=== PATIENT | female | born 1970 | race Caucasian/White ===

== ENCOUNTER 2022-07-23 11:33 | Inpatient (IN) | payer MEDICAID ==
[~2022-07-23] VITALS: Ht 165.1 cm; Wt 68.2 kg
[2022-07-23] VITALS (19 sets, daily range): BP systolic 90–148; BP diastolic 50–74
[2022-07-23] MEDS ORDERED: HYDROcodone/acetaminophen 10/325mg tab PO STA (12:18)
[2022-07-23] MEDS ORDERED: LIDOcaine 1% W/epiNEPHrine 1:100,000 20ml vial SQ ONE (14:10)
[2022-07-23] MEDS ORDERED: TETanus/Pertussis (Acell)/Diphther VAC/PF (Tdap-Adult) 0.5ml syringe IMVAC ONE (14:10)
[2022-07-23] MEDS ORDERED: ceFAZolin/D5W- 1GM premix 50 ML IV STA (15:47)
[2022-07-23] MEDS ORDERED: piperacillin/tazo 3.375gm/50ml 50 ML IV ONE (15:55)
[2022-07-23 16:15] LABS: BASOPHILS % (AUTO) 0.3 % (0-1); EOSINOPHILS % (AUTO) 0.2 % (0-6); HEMATOCRIT 40.2 % (35.0-45.0); HEMOGLOBIN 13.4 g/dl (12.0-16.0); LYMPHOCYTES # (AUTO) 0.8 X10'3 (1.1-4.8); LYMPHOCYTES % (AUTO) 7.3 % (21-51); MEAN CORPUSCULAR HEMOGLOBIN 29.3 PG (27.0-31.0); MEAN CORPUSCULAR HGB CONC 33.4 g/dL (33.0-36.5); MEAN CORPUSCULAR VOLUME 87.7 FL (78-98); MEAN PLATELET VOLUME 9.2 FL (7.4-10.4); MONOCYTES # (AUTO) 0.7 X10'3 (0-0.9); NEUTROPHILS % (AUTO) 86.2 % (42-75); PLATELET COUNT 295 X10'3 (140-440); RED BLOOD COUNT 4.58 X10'6 (4.20-5.60); RED CELL DISTRIBUTION WIDTH 13.6 % (11.5-14.5); WHITE BLOOD COUNT 11.5 X10'3 (4.5-11.0)
[2022-07-23] MEDS ORDERED: magnesium hydroxide 30ml (MOM) UD suspension PO PRN (16:15)
[2022-07-23] MEDS ORDERED: ondansetron/PF 4mg/2ml inj IV PRN ×2 (16:15→16:45)
[2022-07-23] MEDS ORDERED: acetaminophen 325mg tablet PO PRN (16:15)
[2022-07-23] MEDS ORDERED: HYDROcodone/acetaminophen 5mg/325mg tablet PO PRN (16:15)
[2022-07-23] MEDS ORDERED: mag hydrox/Alum hydrox/simeth 30ml oral suspension PO PRN (16:15)
[2022-07-23] MEDS ORDERED: morphine 2 MG/ML inj. syringe IV PRN ×3 (16:15→16:45)
[2022-07-23] MEDS ORDERED: IBUP-1985 PO (16:17)
[2022-07-23] MEDS ORDERED: vancomycin 1,000mg inj ONE ×2 (16:22→17:54)
[2022-07-23 16:37] LABS: ALANINE AMINOTRANSFERASE 21 U/L (12-78); ALBUMIN 3.8 G/DL (3.4-5.0); ALBUMIN/GLOBULIN RATIO 1.2 (1.1-1.5); ALKALINE PHOSPHATASE 69 IU/L (46-116); ANION GAP 12 (8-16); ASPARTATE AMINO TRANSFERASE 18 U/L (10-37); BILIRUBIN,TOTAL 0.2 MG/DL (0.1-1.0); BLOOD UREA NITROGEN 11 MG/DL (7-18); BUN/CREATININE RATIO 14.3 (10.0-20.0); CALCIUM 9.1 MG/DL (8.5-10.1); CHLORIDE 104 MMOL/L (99-107); CREATININE 0.77 MG/DL (0.40-0.90); GLUCOSE 108 MG/DL (70-104); POTASSIUM 3.9 MMOL/L (3.5-5.1); SODIUM 140 MMOL/L (135-145); TOTAL CARBON DIOXIDE 24.4 MMOL/L (24-32); eGFR 79 ML/MIN
[2022-07-23] MEDS ORDERED: ringers solution, lacted 1,000 ML IV SCH (16:45)
[2022-07-23] MEDS ORDERED: proCHLORperazine 10 MG/2 ml inj IV PRN (16:45)
[2022-07-23] MEDS ORDERED: meperidine/PF 25mg/ml syringe IV PRN ×3 (16:45)
[2022-07-23] MEDS ORDERED: morphine 4 MG/ML inj SYRINge IV PRN (16:45)
[2022-07-23] MEDS ORDERED: vancomycin/NS 1 GM ADD-VANTAGE 250 ML IV SCH ×2 (17:00→23:11)
[2022-07-23] MEDS ORDERED: midazolam 1 mg/ML 2ml injection ONE (17:36)
[2022-07-23] MEDS ORDERED: fentaNYL/PF 50MCG/1 ML 2ML syringe ONE (17:36)
[2022-07-23] MEDS ORDERED: propofol inj 20 ML IV ONE (17:49)
[2022-07-23] MEDS ORDERED: ondansetron/PF 4mg/2ml inj ONE (17:49)
[2022-07-23] MEDS ORDERED: tobramycin 40mg/ml inj ONE (17:54)
--- NOTE | 2022-07-23 18:32 | NUR ---
Received from OR via HOSPITAL BED TO REVOVERY ROOM 7 , accompanied by DR HOWELLnesthesiologist and report given by Anesthesiolgist. PT PRESENTS WITH PIV 20G RIGHT HAND, LR RUNNING AT 100MLS/HR, SP02 100% 6L MASK, DRESSING ON RIGHT LOWER LEG CDI, VSS. Addendum: 07/23/22 at 1858 by Yessenia Santos RN, RN Amended: Links added.
--- NOTE | 2022-07-23 19:45 | NUR ---
Patient in room ED 346. I have received report from TYLER Casas and had the opportunity to ask questions and assume patient care.
--- NOTE | 2022-07-23 20:00 | NUR ---
pt arrived to floor in hospital bed. oriented to room. call light in reach.
--- NOTE | 2022-07-23 20:02 | NUR ---
Report called to receiving nurse KIMANI SCOTT. Transferred via HOSPITAL BED TO ROOM 346A. BED IN LOW LOCKED POSITION WITH CALL LIGHT IN REACH, CHART TAKEN TO NURSES STATION. Belongings WERE TAKEN HOME BY PT'S FRIEND MARIAM. Special Issues communicated to receiving nurse. Addendum: 07/23/22 at 2012 by Yessenia Santos RN, RN Amended: Links added.
[2022-07-23] MEDS: dextrose 5%-1/2 normal saline 1,000 ML IV SCH (20:57)
[2022-07-23] MEDS: docusate sod 100mg capsule PO SCH (21:33)
[2022-07-23] MEDS: HYDROcodone/acetaminophen 10/325mg tab PO PRN (21:34)
[2022-07-24] MEDS: HYDROcodone/acetaminophen 10/325mg tab PO PRN (03:00)
[2022-07-24] MEDS: dextrose 5%-1/2 normal saline 1,000 ML IV SCH (04:56)
[2022-07-24 06:00] VITALS: BP 117/59
--- NOTE | 2022-07-24 06:31 | NUR ---
Problems reprioritized. Patient report given, questions answered & plan of care reviewed with SIGIFREDO Disla.
--- NOTE | 2022-07-24 06:48 | NUR ---
Patient in room ED 346. I have received report from Ann Marie SCOTT and had the opportunity to ask questions and assume patient care. Pt is awake, states pain is acceptable at 4/10, lying supine, no distress noted.
[2022-07-24 07:15] LABS: BASOPHILS % (AUTO) 0.3 % (0-1); EOSINOPHILS % (AUTO) 0 % (0-6); HEMATOCRIT 35.7 % (35.0-45.0); HEMOGLOBIN 12.1 g/dl (12.0-16.0); LYMPHOCYTES # (AUTO) 0.9 X10'3 (1.1-4.8); MEAN CORPUSCULAR HEMOGLOBIN 29.7 PG (27.0-31.0); MEAN CORPUSCULAR VOLUME 87.4 FL (78-98); MEAN PLATELET VOLUME 9.8 FL (7.4-10.4); MONOCYTES # (AUTO) 0.8 X10'3 (0-0.9); MONOCYTES % (AUTO) 7.9 % (2-12); NEUTROPHILS # (AUTO) 8.5 X10'3 (1.8-7.7); NEUTROPHILS % (AUTO) 82.8 % (42-75); PLATELET COUNT 264 X10'3 (140-440); RED BLOOD COUNT 4.08 X10'6 (4.20-5.60); RED CELL DISTRIBUTION WIDTH 13.5 % (11.5-14.5); WHITE BLOOD COUNT 10.2 X10'3 (4.5-11.0)
[2022-07-24 08:06] LABS: ALBUMIN 3.1 G/DL (3.4-5.0); ANION GAP 10 (8-16); BLOOD UREA NITROGEN 9 MG/DL (7-18); BUN/CREATININE RATIO 14.5 (10.0-20.0); CALCIUM 8.4 MG/DL (8.5-10.1); CHLORIDE 106 MMOL/L (99-107); CREATININE 0.62 MG/DL (0.40-0.90); GLUCOSE 134 MG/DL (70-104); POTASSIUM 3.8 MMOL/L (3.5-5.1); SODIUM 141 MMOL/L (135-145); TOTAL CARBON DIOXIDE 25.4 MMOL/L (24-32); eGFR > 90 ML/MIN
[2022-07-24] MEDS: docusate sod 100mg capsule PO SCH (09:45)
--- NOTE | 2022-07-24 10:33 | NUR ---
Pt paged. [id number]- Efraín- Dr. Sanches would like Pt to be evaluated by PT and for assistive/ambulation devices. Pt has wound to R calf. Pt received [place] recently. Thanks. Naif Manzano LVN
[2022-07-24 11:00] VITALS: BP 108/52
--- NOTE | 2022-07-24 12:21 | NUR ---
Called Dr Arteaga per DR Sanches request. Received orders for WBAT. Per Dr Arteaga if patient does well with PT he is ok for Dr Sanches to discharge. Patient will need to follow up with Dr Arteaga in [address] Arteaga would like patient to go home on Augmentin for 7 days PO. Keep dressing CDI, If patient needs to take shower keep dressing Dry, Ok to send patient home with 4x4 dressing and Uday wrap if she really needs to take shower ok to remove dressing shower and then pat dry incision and then replace 4x4 and Uday wrap.
--- NOTE | 2022-07-24 13:43 | NUR ---
paged Page Sent PAGER ID: [phone] MESSAGE: [id number] Efraín- PT cleared pt for D/C. PT is sending patient home with crutches. Naif Manzano LVN
[2022-07-24] MEDS ORDERED: HYDR-3965 PO (14:17)
[2022-07-24] MEDS ORDERED: AMOX-117 PO (15:11)
--- NOTE | 2022-07-24 16:14 | NUR ---
All written and discharge instructions provided to patient including wound care instructions. All questions verbalized understanding. Augmentin phone order placed to preferred pharmacy. Pt reinforced wound care instructions. Provided julieta wrap x 2 and sterile dry gauze x 6. All belongings collected by patient including cell phone, clothing, and crutches. Pt ambulated to lobby via wheelchair. Pt picked up by patient's friend Jyothi. Addendum: 07/24/22 at 1621 by Naif Manzano LVN Amended: Links added.
[2022-07-25] MEDS ORDERED: VANCOMYCIN LEVEL IV ONE (09:30)
== END 2022-07-24 16:10 | disposition home health service (06) | DRG 313 ==
LOC: ER 11:36 → ED HOLD 16:16 → SUR 3N 20:00
PROVIDERS: ADMIT Internal Medicine; ATTEND Internal Medicine
PROC: 0YQH0ZZ Repair Right Lower Leg, Open Approach (ICD-10-PCS; 2022-07-23)
PROC: 3E0234Z Introduction of Serum, Toxoid and Vaccine into Muscle, Percutaneous Approach (ICD-10-PCS; 2022-07-23)
PROC: 0QBG0ZZ Excision of Right Tibia, Open Approach (ICD-10-PCS; principal; 2022-07-23 17:30)
DX: S81.811A Laceration without foreign body, right lower leg, initial encounter (principal); Z23 Encounter for immunization; W55.12XA Struck by horse, initial encounter; Y93.89 Activity, other specified; Y92.89 Other specified places as the place of occurrence of the external cause; Y99.8 Other external cause status; Z79.899 Other long term (current) drug therapy
CPT/HCPCS: 36415; 71045; 73590; 80048; 80053; 85025; 85610; 86885; 86900; 86901; 90715; 97110; 97116; 97161; 99285; A4618; A6449; A7000; A9272; G0378; J2175; J2250; J2270; J2405; J2543; J2704; J3010; J3260; J3370; J7120